=== PATIENT | female | born 1995 | race Caucasian/White ===

== ENCOUNTER → 2017-09-16 08:42 | Outpatient (CLI) | payer OTHER, SELFPAY ==
[2017-09-16 10:26] LABS: Free T3, Triiodothyronine Free 3.76 pg/mL (2.77-5.27)
[2017-09-16 10:40] LABS: Thyroid Stimulating Hormone 1.84 uIU/mL (0.47-4.68)
== END ==
PROVIDERS: PCP Physician Assistant; Visit Provider Physician Assistant
DX: E03.9 Hypothyroidism, unspecified (principal); Z51.81 Encounter for therapeutic drug level monitoring
CPT/HCPCS: 36415; 84443; 84481

== ENCOUNTER → 2017-10-15 15:02 | Outpatient (CLI) | payer OTHER, SELFPAY ==
[2017-10-17 14:53] LABS: Hepatitis B Surf Ab Qualitativ Reactive (Nonreactive)
== END ==
PROVIDERS: PCP Family Medicine; Visit Provider Physician Assistant
DX: Z01.84 Encounter for antibody response examination (principal)
CPT/HCPCS: 36415; 86706

== ENCOUNTER → 2018-04-18 10:29 | Outpatient (CLI) | payer OTHER, SELFPAY ==
[2018-04-18 12:00] LABS: TSH w/ Reflex to FT4 3.24 uIU/mL (0.47-4.68)
== END ==
PROVIDERS: PCP Family Medicine; Visit Provider Physician Assistant
DX: E03.9 Hypothyroidism, unspecified (principal)
CPT/HCPCS: 36415; 84443